=== PATIENT | female | born 1955 | race Caucasian/White ===

== ENCOUNTER 2024-02-06 13:23 | Outpatient (RCR) | payer MEDICARE, OTHER, SELFPAY | END 2024-02-06 13:25 | disposition home or self-care (01) | LOC: PT 13:23 | PROVIDERS: Visit Provider Physical Medicine & Rehabilitation | DX: M99.53 Intervertebral disc stenosis of neural canal of lumbar region (principal); M48.061 Spinal stenosis, lumbar region without neurogenic claudication | CPT/HCPCS: 97163 ==